=== PATIENT | male | born 1960 | race Caucasian/White ===

== ENCOUNTER 2017-03-13 17:41 | Inpatient (IN) | payer BC ==
--- NOTE | 2017-03-13 18:13 | EDPHY ---
H & P Stated Complaint: Abd pain, n/v since last evening, bloating Time Seen by Provider: 03/13/17 18:00 HPI/ROS: CHIEF COMPLAINT: Abdominal pain HISTORY OF PRESENT ILLNESS: 57-year-old male presents emergency department complaining of abdominal pain, nausea and vomiting. Patient reports his discomfort started yesterday evening. Pain is upper abdomen, crampy and bloating. Patient reports kept him awake most of the night, he denies fevers or chills. Patient reports today his pain has continued, he has had a few episodes of emesis. Patient reports 2 small bowel movements this morning. He reports he is passing small amounts of gas. Patient reports 5 similar episodes in the last 2 years where he would feel a significant abdominal bloating and pain in his upper abdomen that would resolve after vomiting. His pain is not resolving. Patient had a hiatal hernia repair 12 years ago. REVIEW OF SYSTEMS: A comprehensive 10 point review of systems is otherwise negative aside from elements mentioned in the history of present illness. Source: Patient Exam Limitations: No limitations - Personal History Current Tetanus Diphtheria and Acellular Pertussis (TDAP): Unsure - Medical/Surgical History Other PMH: neg per pt - Social History Smoking Status: Never smoked - Physical Exam Exam: Physical Exam Gen: Alert and Oriented, NAD HEENT: PERRL, moist mucous membranes NECK: no meningismus CV: regular rate and regular rhythm PULM: CTAB, no wheezes ABDOMEN: soft, mild upper abdominal tenderness to palpation, BS present BACK: No CVA tenderness NEURO: Neurologically grossly intact EXTREMITIES: normal appearing SKIN: no rash or break in skin on exposed skin PSYCH: answers questions appropriately. Constitutional: Initial Vital Signs Temperature (C) 37.4 C 03/13/17 17:44 Heart Rate 96 03/13/17 17:44 Respiratory Rate 18 03/13/17 17:44 Blood Pressure 132/89 H 03/13/17 17:44 O2 Sat (%) 94 03/13/17 17:44 O2 Delivery Mode Room Air Allergies/Adverse Reactions: No Known Allergies Allergy (Unverified 03/13/17 17:46) Home Medications: Medication Instructions Recorded NK [No Known Home Meds] 03/13/17 Medical Decision Making - Diagnostics Imaging Results: Imaging Impressions Abdomen CT 03/13/17 18:46 Impression: 1. Findings suggestive of at least a high-grade partial distal small bowel obstruction, with no clear etiology. There may also be a concurrent gastroenteritis, with pronounced distention of the stomach and a small amount of free fluid identified in the pelvis. 2. Small hiatal hernia. 3. Mild prostatomegaly. Findings were discussed with Adeola Mercado NP at 19:45, on 03/13/2017. ED Course/Re-evaluation: IV established, CBC, chemistry panel, urinalysis obtained is. CT abdomen pelvis with IV contrast obtained which showed left a high-grade partial small bowel obstruction with abnormally dilated loops of small bowel. Patient is nontoxic appearing. He has been admitted to the surgeon. NG tube has been placed. Differential Diagnosis: The differential diagnosis for the patient's abdominal pain included but was not limited to appendicitis, cholecystitis, bowel obstruction, hernias, testicular torsion, gastritis, and urinary tract infection. - Data Points Laboratory Results: Laboratory Results 03/13/17 18:00 03/13/17 18:00 03/13/17 03/13/17 18:00 18:00 WBC 16.24 10^3/uL H 10^3/uL (3.80-9.50) RBC 5.45 10^6/uL 10^6/uL (4.40-6.38) Hgb 17.0 g/dL g/dL (13.7-17.5) Hct 49.3 % % (40.0-51.0) MCV 90.5 fL fL (81.5-99.8) MCH 31.2 pg pg (27.9-34.1) MCHC 34.5 g/dL g/dL (32.4-36.7) RDW 13.1 % % (11.5-15.2) Plt Count 436 10^3/uL H 10^3/uL (150-400) MPV 8.9 fL fL (8.7-11.7) Neut % (Auto) 83.6 % H % (39.3-74.2) Lymph % (Auto) 6.8 % L % (15.0-45.0) [place] % (Auto) 8.5 % % (4.5-13.0) Eos % (Auto) 0.2 % L % (0.6-7.6) Baso % (Auto) 0.4 % % (0.3-1.7) Nucleat RBC Rel Count 0.0 % % (0.0-0.2) Absolute Neuts (auto) 13.58 10^3/uL H 10^3/uL (1.70-6.50) Absolute Lymphs (auto) 1.10 10^3/uL 10^3/uL (1.00-3.00) Absolute Monos (auto) 1.38 10^3/uL H 10^3/uL (0.30-0.80) Absolute Eos (auto) 0.04 10^3/uL 10^3/uL (0.03-0.40) Absolute Basos (auto) 0.06 10^3/uL 10^3/uL (0.02-0.10) Absolute Nucleated RBC 0.00 10^3/uL 10^3/uL (0-0.01) Immature Gran % 0.5 % % (0.0-1.1) Immature Gran # 0.08 10^3/uL 10^3/uL (0.00-0.10) Sodium 139 mEq/L mEq/L (134-144) Potassium 3.8 mEq/L mEq/L (3.5-5.2) Chloride 100 mEq/L mEq/L (97-110) Carbon Dioxide 26 mEq/l mEq/l (22-31) Anion Gap 13 mEq/L mEq/L (8-16) BUN 13 mg/dL mg/dL (7-23) Creatinine 1.0 mg/dL mg/dL (0.7-1.3) Estimated GFR > 60 Glucose 119 mg/dL H mg/dL (70-100) Calcium 10.4 mg/dL mg/dL (8.5-10.4) Total Bilirubin 1.0 mg/dL mg/dL (0.1-1.4) Conjugated Bilirubin 0.3 mg/dL mg/dL (0.0-0.5) Unconjugated Bilirubin 0.7 mg/dL mg/dL (0.0-1.1) AST 30 IU/L IU/L (17-59) ALT 39 IU/L IU/L (21-72) Alkaline Phosphatase 72 IU/L IU/L (38-126) Total Protein 7.3 g/dL g/dL (6.3-8.2) Albumin 4.5 g/dL g/dL (3.5-5.0) Lipase 121 IU/L IU/L (23-300) Medications Given: Hydromorphone HCl (Dilaudid) 0.2 - 0.4 mg IVP Q4HRS PRN PRN Reason: Pain, Severe Unable to Take PO Stop: 03/23/17 20:40 Last Admin: 03/13/17 22:21 Dose: 0.2 mg Potassium Chloride/Dextrose/Sod Cl (D5w 1/2 Ns W/ 20 Kcl/L) 1,000 mls @ 125 mls /hr IV CONT CATHY Stop: 09/09/17 20:44 Last Admin: 03/13/17 22:03 Dose: 1,000 mls Ondansetron HCl (Zofran) 4 mg IVP Q4HRS PRN PRN Reason: Nausea/Vomiting, Can't Take PO Stop: 09/09/17 20:40 Last Admin: 03/13/17 22:15 Dose: 4 mg Discontinued Medications Sodium Chloride (Ns) 1,000 mls @ 0 mls/hr IV EDNOW ONE; Wide Open PRN Reason: Protocol Stop: 03/13/17 18:47 Last Admin: 03/13/17 18:58 Dose: 1,000 mls Departure - Departure Disposition: [facility] Inpatient Acute Clinical Impression: Partial small bowel obstruction Abdominal pain Qualifiers: Abdominal location: epigastric Qualified Code(s): R10.13 - Epigastric pain Condition: Fair
[2017-03-13 18:15] LABS: % IMMATURE GRANULYOCYTES 0.5 % (0.0-1.1); ABSOLUTE IMMATURE GRANULOCYTES 0.08 10^3/uL (0.00-0.10); ADD DIFF? NO; ADD MORPH? NO; ADD SCAN? NO; ATYPICAL LYMPHOCYTE FLAG 0 (0-99); FRAGMENT RBC FLAG 0 (0-99); HEMATOCRIT 49.3 % (40.0-51.0); LEFT SHIFT FLG 0 (0-99); LIPEMIA HEMOLYSIS FLAG 90 (0-99); MEAN CELL HEMOGLOBIN 31.2 pg (27.9-34.1); MEAN CELL HEMOGLOBIN CONCENTR. 34.5 g/dL (32.4-36.7); MEAN CELL VOLUME 90.5 fL (81.5-99.8); MEAN PLATELET VOLUME 8.9 fL (8.7-11.7); PLATELET CLUMPS FLAG 0 (0-99); PLATELET COUNT 436 10^3/uL (150-400); RED BLOOD CELL COUNT 5.45 10^6/uL (4.40-6.38); RED CELL DISTRIBUTION WIDTH 13.1 % (11.5-15.2)
[2017-03-13 18:33] LABS: ALANINE AMINOTRANSFERASE 39 IU/L (21-72); ALBUMIN 4.5 g/dL (3.5-5.0); ALKALINE PHOSPHATASE 72 IU/L (38-126); ANION GAP 13 mEq/L (8-16); ASPARTATE AMINOTRANSFERASE 30 IU/L (17-59); BILIRUBIN-CONJUGATED 0.3 mg/dL (0.0-0.5); BILIRUBIN-UNCONJUGATED 0.7 mg/dL (0.0-1.1); CALCIUM 10.4 mg/dL (8.5-10.4); CARBON DIOXIDE 26 mEq/l (22-31); CHLORIDE 100 mEq/L (97-110); GLOMERULAR FILTRATION RATE > 60; GLUCOSE 119 mg/dL (70-100); POTASSIUM 3.8 mEq/L (3.5-5.2); SODIUM 139 mEq/L (134-144); TOTAL PROTEIN 7.3 g/dL (6.3-8.2)
[2017-03-13] MEDS ORDERED: NS 1,000 ML IV ONE (18:46)
[2017-03-13] MEDS ORDERED: IOPAMIDOL (ISOVUE-300) 100 ML BTL ONE (18:57)
[2017-03-13] MEDS ORDERED: BENZOCAINE UNIT DOSE SPRAY HURRICAINE MM ONE (20:17)
[2017-03-13] MEDS ORDERED: LIDOCAINE 2% JELLY 20 ML (UROJECT) ONE (20:17)
[2017-03-13] MEDS ORDERED: ONDANSETRON 4 MG/2 ML VIAL IVP PRN (20:41)
[2017-03-13] MEDS ORDERED: ONDANSETRON DISINTEGRATING 4 MG TAB PO PRN (20:41)
[2017-03-13] MEDS ORDERED: HYDROmorphONE/DILAUDID 1 MG/ML INJ IVP PRN (20:41)
--- NOTE | 2017-03-13 21:12 | GHP ---
[f rep st] PREOP HISTORY AND PHYSICAL DATE OF ADMISSION: 03/13/2017 CHIEF COMPLAINT: Abdominal pain with nausea and vomiting. HISTORY OF PRESENT ILLNESS: This is an otherwise healthy 57-year-old male, who presents with a 24-ho ur history of worsening abdominal pain with nausea and vomiting. The patient states that he began to have abdominal discomfort last evening, which he states was actually worse than today. It kept him u p most of the night. Throughout the day, he has had persistent abdominal pain with nausea and vomiti ng. He does state that each time he vomits he does get partial resolution of the pain but that it sl owly recurs over time. He denies having any fevers but does endorse having chills. He has had episo jony like this over the past few years where he gets abdominal bloating, vomits, and then feels better . This time is different, as the vomiting has not sufficiently cleared the pain. He continues to pa ss flatus and had 2 bowel movements today which he said were small. Other than the abdominal pain an d the nausea, he has no complaints. PAST MEDICAL HISTORY: None. PAST SURGICAL HISTORY: An epigastric hernia repair performed in 2003, with mesh. FAMILY HISTORY: Dad of pancreatic cancer. SOCIAL HISTORY: Social alcohol. No tobacco. Some cigars, occasional marijuana. 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 REVIEW OF SYSTEMS: A full 10-point review was performed and, unless explicitly stated above, is othe rwise negative. PHYSICAL EXAM: VITAL SIGNS: Temperature 37 even, blood pressure 128/83, heart rate 88, and he is 92 % on room air. CONSTITUTIONAL: He is in no apparent distress. He is comfortable. EYES: His pupil s are equal, round, and reactive to light and accommodation with anicteric sclerae. EARS, NOSE, MOUT H, AND THROAT: Dry mucous membranes. Hearing normal. CV: He has a regular rate and rhythm without any murmurs. RESPIRATORY: He has no respiratory distress and he is otherwise clear. GI: He has h ypoactive bowel sounds. His abdomen is minimally distended, minimally tender without rebound tendern ess or guarding and without palpable masses. SKIN: Warm. Normal color without rashes. He does hav e a well-healed midline scar on his abdomen consistent with previous hernia repair. MUSCULOSKELETAL: Full muscle strength. No tenderness and normal joint range of motion. NEUROLOGIC: He is alert an d oriented x3. His cranial nerves 2-12 are intact. He has no weakness and no numbness. PSYCHIATRIC : He is interacting appropriately and he is not anxious. LYMPH/HEME/IMMUNOLOGIC: He has no appreci able cervical, inguinal, or supraclavicular lymphadenopathy. LABORATORY DATA: Leukocytosis to 16,000 with a left shift. Platelets elevated at 436. Chemistries are unremarkable with the exception of a glucose at 119. IMAGING: Includes a CT scan of his abdomen and pelvis, the images of which were personally reviewed by me. It does show small bowel obstruction, unclear at the transition point with a very distended s tomach. No free air. Very minimal free fluid in the pelvis. ASSESSMENT AND PLAN: A 57-year-old male with partial small bowel obstruction. Currently his examina tion in the emergency department is reassuring. His abdomen is soft and non-peritoneal. He is feeli ng better after receiving some intravenous hydration. I do feel that he would benefit from nasogastr ic tube decompression and I have since ordered this. I told the patient that more than likely this s mall bowel obstruction will resolve with time and bowel rest; however, we will bring him into the hos pital and continue to hydrate and observe him. We will re-evaluate in the morning. He may need a all bowel follow-through to further evaluate and clear this obstruction. All questions were answered . /[id number]/MODL
[2017-03-13] MEDS: D5W 1/2 NS W/ 20 KCl/L 1,000 ML IV SCH (22:03)
[2017-03-14 05:04] LABS: COLOR YELLOW; LEUKOCYTE ESTERASE,URINE NEGATIVE (NEGATIVE); NITRITE,URINE NEGATIVE (NEGATIVE)
[2017-03-14 05:12] LABS: % IMMATURE GRANULYOCYTES 0.4 % (0.0-1.1); ABSOLUTE IMMATURE GRANULOCYTES 0.04 10^3/uL (0.00-0.10); ADD DIFF? NO; ADD MORPH? NO; ADD SCAN? NO; ATYPICAL LYMPHOCYTE FLAG 0 (0-99); FRAGMENT RBC FLAG 0 (0-99); HEMATOCRIT 42.7 % (40.0-51.0); HEMOGLOBIN 14.5 g/dL (13.7-17.5); LEFT SHIFT FLG 0 (0-99); LIPEMIA HEMOLYSIS FLAG 90 (0-99); MEAN CELL HEMOGLOBIN 31.3 pg (27.9-34.1); MEAN CELL VOLUME 92.2 fL (81.5-99.8); MEAN PLATELET VOLUME 8.9 fL (8.7-11.7); PLATELET CLUMPS FLAG 10 (0-99); PLATELET COUNT 339 10^3/uL (150-400); RED BLOOD CELL COUNT 4.63 10^6/uL (4.40-6.38); RED CELL DISTRIBUTION WIDTH 13.2 % (11.5-15.2)
[2017-03-14 05:16] LABS: ANION GAP 10 mEq/L (8-16); CALCIUM 8.9 mg/dL (8.5-10.4); CARBON DIOXIDE 25 mEq/l (22-31); CHLORIDE 104 mEq/L (97-110); GLOMERULAR FILTRATION RATE > 60; GLUCOSE 125 mg/dL (70-100); POTASSIUM 3.9 mEq/L (3.5-5.2); SODIUM 139 mEq/L (134-144)
[2017-03-14] MEDS: D5W 1/2 NS W/ 20 KCl/L 1,000 ML IV SCH (06:22)
--- NOTE | 2017-03-14 14:28 | ASMTCMCOM ---
CM Note CM Note Notes: Chart reviewed, pt is a 57 y/o man admitted w/ pericardial effusion. 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 Pt has a NG tube in his stomach. No therapies ordered at this time. Anticipates that pt will be independent when medically stable. CM available for changes. Date Signed: 03/14/2017 02:28 PM Electronically Signed By:SHAYNE Acuña
--- NOTE | 2017-03-14 14:44 | SOAPPROG ---
SOAP Progress Note Assessment/Plan: Assessment/Plan: HD#2, Gigi Wilson continues to make progress. His abdomen is minimally distended and he is passing flatus. His NGT initially poured out 500cc and has since dried up. KUB today shows persistence of SBO. Will cont NGT decompression today, re-eval tomorrow but he is making clinical improvement. Poss dc NGT tomorrow if continues to progress and has low output. Abdominal exam reassuring 03/14/17 14:42 Subjective: Passing flatus, dislikes the NGT Objective: Vital Signs Temp Pulse Resp BP Pulse Ox 37.1 C 77 16 114/71 91 L 03/14/17 07:40 03/14/17 07:40 03/14/17 07:40 03/14/17 07:40 03/14/17 07:40 Laboratory Results 03/14/17 04:47 03/14/17 04:47 03/13/17 03/14/17 03/15/17 05:59 05:59 05:59 Intake Total 1000 1000 Output Total 1125 50 Balance -125 950 ICD10 Worksheet Patient Problems: Problems Problem Status Onset Abdominal pain Acute Partial small bowel obstruction Acute
[2017-03-14] MEDS ORDERED: BENZOCAINE UNIT DOSE SPRAY HURRICAINE MM PRN (17:54)
[2017-03-14] MEDS: CEPACOL LOZENGE PO PRN ×2 (17:59→20:49)
[2017-03-15] MEDS: D5W 1/2 NS W/ 20 KCl/L 1,000 ML IV SCH ×2 (07:50→16:43)
[2017-03-15] MEDS: CEPACOL LOZENGE PO PRN ×2 (12:43→21:40)
--- NOTE | 2017-03-15 15:40 | SOAPPROG ---
SOAP Progress Note Assessment/Plan: Assessment: 2 DAYS OF SMALL-BOWEL FOLLOW-THROUGH BUT APPEARS TO BE IMPROVING WITH SOME FLATUS AND SMALL BM/ 2 WAY ABDOMEN LOOKS IMPROVED WELL ABDOMEN SOFT AND NONTENDER WITH BOWEL SOUNDS Plan: CLAMPING NG/START CLEARS/SMALL-BOWEL FOLLOW-THROUGH IN THE A.M. 03/15/17 15:39 Objective: Vital Signs Temp Pulse Resp BP Pulse Ox 36.9 C 78 16 114/73 94 03/15/17 11:27 03/15/17 11:27 03/15/17 11:27 03/15/17 11:27 03/15/17 11:27 Laboratory Results 03/14/17 04:47 03/14/17 04:47 03/14/17 03/15/17 03/16/17 05:59 05:59 05:59 Intake Total 1000 2640 1440 Output Total 1125 950 Balance -125 1690 1440 ICD10 Worksheet Patient Problems: Problems Problem Status Onset Abdominal pain Acute Partial small bowel obstruction Acute
[2017-03-15] MEDS ORDERED: HYDROmorphONE/DILAUDID 2 MG/ML INJ IVP PRN (23:30)
[2017-03-16] MEDS: CEPACOL LOZENGE PO PRN (09:30)
[2017-03-16] MEDS: D5W 1/2 NS W/ 20 KCl/L 1,000 ML IV SCH (09:38)
[2017-03-16 11:20] VITALS: BP 113/73; PULSE 78; RESP 16; TEMP 97.9; O2SAT 96
--- NOTE | 2017-03-16 12:09 | SOAPPROG ---
SOAP Progress Note Assessment/Plan: Assessment: 2 DAYS OF SMALL-BOWEL FOLLOW-THROUGH BUT APPEARS TO BE IMPROVING WITH SOME FLATUS AND SMALL BM/ 2 WAY ABDOMEN LOOKS IMPROVED WELL ABDOMEN SOFT AND NONTENDER WITH BOWEL SOUNDS Plan: CLAMPING NG/START CLEARS/SMALL-BOWEL FOLLOW-THROUGH IN THE A.M. 03/15/17 15:39 03/16/17 12:08 VITAL SIGNS STABLE/AFEBRILE/ABDOMEN SOFT/SMALL-BOWEL FOLLOW-THROUGH IS NORMAL/ PLAN IS DC NG TUBE AND ADVANCE DIET/ HOME TODAY PROBABLY Objective: Vital Signs Temp Pulse Resp BP Pulse Ox 36.6 C 78 16 113/73 96 03/16/17 11:19 03/16/17 11:19 03/16/17 11:19 03/16/17 11:19 03/16/17 11:19 Laboratory Results 03/14/17 04:47 03/14/17 04:47 03/15/17 03/16/17 03/17/17 05:59 05:59 05:59 Intake Total 2640 3275 Output Total 950 2110 Balance 1690 1165 ICD10 Worksheet Patient Problems: Problems Problem Status Onset Abdominal pain Acute Partial small bowel obstruction Acute
[2017-03-16] MEDS ORDERED: FLU VACC QS 2017-18 (3YR+)/PF 0.5 ML SYR (FLUARIX QUAD) IM ONE (15:19)
--- NOTE | 2017-03-17 16:18 | ASDISCHSUM ---
Discharge Information Plan Status:Home with No Needs Medically Cleared to Leave:03/16/2017 Discharge Date:03/16/2017 04:32 PM CM D/C Disposition:Home, Routine, Self-Care ADT D/C Disposition:Home, Routine, Self-Care Projected Discharge Date:03/16/2017 12:00 AM Transportation at D/C: Discharge Delay Reason: Follow-Up Date:03/16/2017 12:00 AM Discharge Slot: Final Diagnosis: Placement Information Patient Contact Information Contact Name:DEVIN Relationship: Address:[address] [place] City:[place] Alternate Phone: [facility]/Zip Code:[place] [address] Email: Financial Information Financial Class:HMO and PPO Plans Primary Plan Desc: OUT OF STATE PPO Primary Plan Number:[id number] Secondary Plan Desc: Secondary Plan Number: Assessment Information BC CM Progress Note CM Note CM Note Notes: Chart reviewed, pt is a 57 y/o man admitted w/ pericardial effusion. 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 Pt has a NG tube in his stomach. No therapies ordered at this time. Anticipates that pt will be independent when medically stable. CM available for changes. Date Signed: 03/14/2017 02:28 PM Electronically Signed By:SHAYNE Acuña Intervention Information Intervention Type:*Incorrect Registration Date of Service:03/13/2017 09:00 PM Patient Type:Inpatient Staff Member:ARTHUR Mccracken, Monse Hours: Discipline: Severity: Comment:
== END 2017-03-16 16:32 | disposition home or self-care (01) | DRG 390 ==
LOC: OBSVTOIN 19:54 → F2W 21:52 → F3E 03-14 15:37
PROVIDERS: ADMIT Internal Medicine; ATTEND Surgery
DX: K56.60 Unspecified intestinal obstruction (principal); Z23 Encounter for immunization
CPT/HCPCS: G0008; J1170; J2405; Q9967

== ENCOUNTER → 2017-10-14 | Outpatient (CLI) | payer BC | LOC: FIMAGING 08:16 | PROVIDERS: ATTEND Physician Assistant Medical | DX: R51 Headache (principal); H53.8 Other visual disturbances ==

== ENCOUNTER 2018-07-24 07:19 | Day surgery (SDC) | payer BC, OTHER ==
[2018-07-24] MEDS ORDERED: LR 1,000 ML IV ONE (07:38)
[2018-07-24] MEDS ORDERED: ceFAZolin 2 GM/DEXTROSE 100 ML IV ONE (07:38)
[2018-07-24] MEDS ORDERED: CEFAZOLIN 2 GM/DEXTROSE/100 ML BAG IV ONE (07:42)
[2018-07-24] MEDS ORDERED: BUPIVACAINE 0.5% 30 ML SDV ONE (08:18)
--- NOTE | 2018-07-24 08:24 | PDHPUP ---
History & Physical Update H&P update statement: This history and physical update is based on an assessment of the patient which was completed after admission or registration (within 24 hours), but prior to the surgery/procedure. H&P update: H&P reviewed & patient examined, no change in patient's condition since H&P completed
[2018-07-24] MEDS ORDERED: fentaNYL 250 MCG/5 ML INJ ONE (08:36)
[2018-07-24] MEDS ORDERED: PROPOFOL/EMULSION 500 MG/50 ML BOTTLE IV ONE ×2 (08:37→09:08)
[2018-07-24] MEDS ORDERED: MIDAZOLAM 2 MG/2 ML VIAL ONE (09:04)
[2018-07-24] MEDS ORDERED: MIDAZOLAM 2 MG/2 ML VIAL IVP ONE (09:10)
[2018-07-24] MEDS ORDERED: ONDANSETRON 4 MG/2 ML VIAL IVP PRN (09:27)
[2018-07-24] MEDS ORDERED: LR 500 ML IV PRN (09:27)
[2018-07-24] MEDS ORDERED: NALOXONE HCL 0.4 MG/ML INJ IVP PRN (09:27)
[2018-07-24] MEDS ORDERED: fentaNYL 100 MCG/2 ML INJ IVP PRN (09:27)
[2018-07-24] MEDS ORDERED: oxyCODONE IR 5 MG TAB PO PRN ×2 (09:27→12:24)
[2018-07-24] MEDS ORDERED: LABETALOL HCL 5 MG/ML 20 ML MDV IVP PRN (09:27)
[2018-07-24] MEDS ORDERED: ALBUTEROL 3 ML DEYVIAL IH PRN (09:27)
[2018-07-24] MEDS ORDERED: DEXAMETHASONE 4 MG/ML VIAL IVP PRN (09:27)
[2018-07-24] MEDS ORDERED: MEPERIDINE 25 MG/0.5 ML AMP IVP PRN (09:27)
--- NOTE | 2018-07-24 09:27 | PDANEPAE ---
ANE History of Present Illness 58 year old healthy male for ankle arthroplasty. ANE Past Medical History - Cardiovascular History Hx Hypertension: No Hx Arrhythmias: No Hx Chest Pain: No Hx Coronary Artery / Peripheral Vascular Disease: No Hx CHF / Valvular Disease: No Hx Palpitations: No - Pulmonary History Hx COPD: No Hx Asthma/Reactive Airway Disease: No Hx Recent Upper Respiratory Infection: No Hx Oxygen in Use at Home: No Hx Sleep Apnea: No Sleep Apnea Screening Result - Last Documented: Negative - Neurologic History Hx Cerebrovascular Accident: No Hx Seizures: No Hx Dementia: No - Endocrine History Hx Diabetes: No - Renal History Hx Renal Disorders: No - Liver History Hx Hepatic Disorders: No - Neurological & Psychiatric Hx Hx Neurological and Psychiatric Disorders: No - Cancer History Hx Cancer: No Cancer History Comment: MELANOMA FACE - Congenital Disorder History Hx Congenital Disorders: No - GI History Hx Gastrointestinal Disorders: Yes Gastrointestinal History Comment: SMALL BOWEL OBSTRUCTION 2017 - NO PROBLEMS SINCE HOSPITALIZED X 3 DAYS - Other Health History Other Health History: PSORIASIS R KNEE - Chronic Pain History Chronic Pain: Yes (ANKLE) - Surgical History Prior Surgeries: VENTRAL HERNIA. BASAL CELL MELANOMA & SQUAMOUS CELL FACE. L ANKLE 2001. KNEE SCOPE ANE Review of Systems Review of systems is: negative Review of Systems: - Exercise capacity METS (RN): 5 METS ANE Patient History - Allergies Allergies/Adverse Reactions: No Known Allergies Allergy (Unverified 07/24/18 07:44) - Home Medications Home Medications: Cetirizine [ZyrTEC 10 mg (*)] 10 mg PO DAILY 07/07/18 [Last Taken 07/17/18] Herbals/Supplements -Info Only 1 ea PO DAILY 07/07/18 [Last Taken 07/17/18] Ibuprofen [Motrin (*)] 600 mg PO DAILY PRN 07/07/18 [Last Taken 07/17/18] Multivitamins [Multivitamin (*)] 1 each PO DAILY 07/07/18 [Last Taken 07/17/18] Galt-3 Fatty Acids [Fish Oil 1000 mg (*)] 1,000 mg PO DAILY 07/07/18 [Last Taken 07/17/18] Triamcinolone 0.1% [Triamcinolone 0.1% Cream (*)] 1 manuel TP BID PRN 07/07/18 [ Last Taken 07/23/18] Vitamin B Complex [Vitamin B Complex (OTC)] 1 each PO DAILY 07/07/18 [Last Taken 07/17/18] - NPO status NPO Since - Liquids (Date): 07/24/18 NPO Since - Liquids (Time): 05:00 NPO Since - Solids (Date): 07/23/18 NPO Since - Solids (Time): 19:00 - Smoking Hx Smoking Status: Never smoked - Family Anes Hx Family Hx Anesthesia Complications: neg ANE Labs/Vital Signs - Vital Signs Blood Pressure: 127/85 Heart Rate: 81 Respiratory Rate: 16 O2 Sat (%): 95 Height: 172.72 cm Weight: 74.843 kg ANE Physical Exam - Airway Neck exam: FROM Mallampati Score: Class 2 Mouth exam: normal dental/mouth exam - Pulmonary Pulmonary: no respiratory distress - Cardiovascular Cardiovascular: regular rate and rhythym - ASA Status ASA Status: I ANE Anesthesia Plan Anesthesia Plan: GA w LMA Regional Anesthesia: single shot NB, continuous NB
[2018-07-24] MEDS ORDERED: DESFLURANE 240 ML BOTTLE IH ONE (11:57)
[2018-07-24] MEDS ORDERED: ONDANSETRON DISINTEGRATING 4 MG TAB PO PRN (12:24)
[2018-07-24] MEDS ORDERED: HYDROmorphONE/DILAUDID 1 MG/ML INJ IVP PRN (12:24)
--- NOTE | 2018-07-24 12:24 | POSTOPPROG ---
Post Op Note Date of Operation: 07/24/18 Surgeon: Bharath Sanford Account Manager Sales Representative: Judy Anesthesia: GET(General Endotracheal) Pre-op Diagnosis: L ankle djd Post-op Diagnosis: same Indication: above Procedure: GABBY, HWR, TAA Inf/Abcess present in the surg proc area at time of surgery?: No EBL: 50-100
--- NOTE | 2018-07-24 12:30 | POSTANESTH ---
Post Anesthetic Evaluation Cardiovascular Status: Normal, Stable Respiratory Status: Normal, Stable Level of Consciousness/Mental Status: Mildly Sleepy, Arousable Pain Control: Adequate, Prn Tx Ordered Nausea/Vomiting Control: Adequate, Prn Tx Ordered Complications Possibly Related to Anesthesia: None Noted
--- NOTE | 2018-07-24 12:56 | SOAPPROG ---
SOAP Progress Note Assessment/Plan: Assessment: S/P right ankle arthroplasty. Single shot adductor canal block done along with popliteal block with catheter. Each site was injected with bupivicaine .5% 15cc. Patient tolerated well. No complications. Plan: 07/24/18 12:53 s/p Objective: Vital Signs Temp Pulse Resp BP Pulse Ox 37 C 81 16 127/85 H 95 07/24/18 12:20 07/24/18 09:26 07/24/18 09:26 07/24/18 09:26 07/24/18 09:26 07/23/18 07/24/18 07/25/18 05:59 05:59 05:59 Intake Total 1700 Output Total 30 Balance 1670 ICD10 Worksheet Patient Problems: Problems Problem Status Onset Abdominal pain Acute Partial small bowel obstruction Acute
--- NOTE | 2018-07-24 13:07 | GOP ---
[f rep st] OPERATIVE REPORT DATE OF OPERATION: 07/24/2018 SURGEON: Bharath Sanford MD NEUROSURGEON: Bharath Sanford MD. TANK OFFICER: Manish Kim SA. ANESTHESIA: General with indwelling popliteal block and saphenous block for postop pain control. 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 POSTOPERATIVE DIAGNOSIS: Left ankle arthritis and left ankle tendo Achilles contracture and retained hardware. PROCEDURE PERFORMED: 1. Left total ankle arthroplasty implant, [employer] [facility]. 2. Tendo-Achilles lengthening, Clayton triple-step cut. 3. Right ankle hardware removal, broken screw. FINDINGS: SPECIMENS: None. ESTIMATED BLOOD LOSS: 20 mL. INDICATIONS: This is a male with severe ankle arthritis, prior surgeries. I discussed risks and benefits of an operative intervention with fusion versus an arthroplasty as he failed conservative management and elected for the arthroplasty. We discussed risks for other procedures, possibly heel shift, as well as the lengthening and hardware removal and he elected to proceed. Informed consent was obtained. All questions were answered. He was marked preoperatively. We discussed the risks of nerve injury, continued pain, wound infection, need for fusion, inability to remove hardware, blood clot, pain and he signed the consent. DESCRIPTION OF PROCEDURE: He is brought back to the operating room and block administered. He was sterilely prepped and draped in normal fashion. A time- out was performed verifying the site, side, location and there was agreement by everyone on the team. The procedure was begun by doing the Clayton triple-step cut through small incisions in the Achilles and lengthen this in the usual manner. I then placed this in dorsiflexion. I made an incision over the anterior tibia following his old incision and extended this. I worked between the tibialis anterior and EHL and dissected down to the joint, protecting neurovascular structures. I removed the soft tissues off the joint. I then placed the guide from the CT scan planning on the tibia and placed a guide pin and checked this fluoroscopically. Placed the cutting guide, checked this fluoroscopically and pinned this into place. I made cuts on the tibia and removed this bone. I then placed a guide on the talus, pinned this, checked this fluoroscopically, placed the cutting guide on, checked this fluoroscopically, made the talar cuts , removed this bone and cleaned the gutters and debrided this, as well as release the deltoid ligament to correct his deformity. I then removed the screw head and the fibula through a small incision and then I was able to get the screw out, the broken part of the screw, by twisting this with needle-nosed pliers, removing a small amount of tibial bone. I then placed the guide for the reaming in the tibia and then the large guide over this and then made a michael on the heel, made the stab incision in the heel and then made a small tunnel in the calcaneus and talus. I then used the drill and then the reamers to ream up to a 16 mm tunnel. I checked this fluoroscopically. I selected a 3- piece stem. Assembled this in the joint sequentially and then used the Price taper and pounded this into place and then pounded the stem and tray into place , respecting the antirotation notch. I checked this fluoroscopically. I then placed a talar guide in the poly and placed this on the talus and checked this fluoroscopically, pinned this into place and then drilled the holes and then removed these, placed the guide pin and then the reamer. I then removed all this. I gave it a thorough irrigation, debrided the gutters and released more deltoid. I then malleted the tibia into place, selected the smallest poly, placed this into place. He had good range of motion, good stability and it corrected his deformity. I did not feel the need for heel osteotomy. Tourniquet was released. Hemostasis was obtained. He was closed with #1 Vicryl , 0 Vicryl, 2-0 Vicryl, 3-0 Quill, also nylons in the small incisions. Placed in a sterile dressing and splint, and taken to PACU in stable condition. IMPLANTS: [facility] Inbone arthroplasty with a 3-stemmed tibial piece, 4 long, size 4 talus and 6 mm poly. COMPLICATIONS: None. DRAINS: None. CONDITION: Stable. /[id number]/MODL MTDD
[2018-07-24 15:30] VITALS: BP 118/81
[2018-07-24] MEDS ORDERED: ROPIVACAINE 0.2% 1,100 MG in PUMP SET 1 EA NB SCH (16:30)
== END 2018-07-24 18:05 | disposition home or self-care (01) ==
LOC: F3N 07:19 → FSGY 07:19 → UNDOADMOB 07:19 → EDSTATUS 09:00 → FSGY 18:05
PROVIDERS: ATTEND Orthopaedic Surgery
PROC: 0LNT0ZZ Release Left Ankle Tendon, Open Approach (ICD-10-PCS; principal; 2018-07-24 09:00)
PROC: BQ1H1ZZ Fluoroscopy of Left Ankle using Low Osmolar Contrast (ICD-10-PCS; principal; 2018-07-24 09:00)
PROC: 0QPK04Z Removal of Internal Fixation Device from Left Fibula, Open Approach (ICD-10-PCS; principal; 2018-07-24 09:00)
PROC: 0SRG0JA Replacement of Left Ankle Joint with Synthetic Substitute, Uncemented, Open Approach (ICD-10-PCS; principal; 2018-07-24 09:00)
DX: M19.072 Primary osteoarthritis, left ankle and foot (principal); T84.213A Breakdown (mechanical) of internal fixation device of bones of foot and toes, initial encounter; Z85.820 Personal history of malignant melanoma of skin; Z87.19 Personal history of other diseases of the digestive system; Z87.81 Personal history of (healed) traumatic fracture
CPT/HCPCS: C1713; J0690; J2250; J2704; J2795; J3010